=== PATIENT | male | born 1950 | race Two or more races ===

== ENCOUNTER 2019-08-03 15:23 | Emergency (ER) | payer MEDICARE, BC ==
[~2019-08-03] VITALS: Ht 167.6 cm; Wt 48.6 kg
[~2019-08-03 15:23] MED LIST: ALDACTONE25 MG PO; BRILINTA90 MG PO; COUMADIN5 MG PO; COUMADIN7.5 MG PO; LANOXIN125 MCG PO; LASIX40 MG PO; LISINOPRIL5 MG PO
[2019-08-03 15:32] VITALS: Ht 167.6 cm; Wt 48.6 kg
[2019-08-03 16:15] LABS: BASOPHILS 0.4 % (0-2); EOSINOPHILS 2.6 % (0-7); HEMATOCRIT 32.5 % (42.0-54.0); HEMOGLOBIN 10.3 g/dL (13.5-17.5); IMMATURE GRANULOCYTES 0.2 % (0-5); LYMPHOCYTES 12.9 % (15-50); MCH 31.1 pg (26.0-34.0); MCHC 31.7 g/dL (31.0-37.0); MCV 98.2 fL (80.0-100.0); MEAN PLATELET VOLUME 10.7 fL (7.4-10.4); MONOCYTES 14.8 % (2-11); NEUTROPHILS 69.1 % (40-80); RBC 3.31 10x6/uL (4.20-6.10); RDW 17.7 % (11.5-14.5); WBC 5.4 10x3/uL (4.8-10.8)
[2019-08-03 16:20] LABS: PLATELET COUNT 130 10x3/uL (130-400)
[2019-08-03 16:34] LABS: INR 2.47 (0.85-1.17)
[2019-08-03 16:35] LABS: APTT 40.8 SECONDS (22.8-39.4)
[2019-08-03 16:38] LABS: CALC OSMOLALITY 276 mosm/kg (275-300); CALCIUM 8.9 mg/dL (8.5-10.1); CARBON DIOXIDE 32.5 mmol/L (21.0-32.0); CHLORIDE - SERUM 101 mmol/L (98-107); CREATININE - SERUM 0.8 mg/dL (0.6-1.3); GLUCOSE 83 mg/dL (74-106); POTASSIUM - SERUM 3.7 mmol/L (3.5-5.1); SODIUM 137 mmol/L (136-145); UREA NITROGEN 23 mg/dL (7-18); eGFR NON AFRICAN AMERICAN > 90 mL/min (90-120)
[2019-08-03 16:54] LABS: ALBUMIN 3.3 g/dL (3.4-5.0); ALKALINE PHOSPHATASE 89 U/L (46-116); ALT (SGPT) 26 U/L (10-68); BILIRUBIN - TOTAL 2.41 mg/dL (0.2-1.3); CKMB 0.3 U/L (0.0-3.6); CREATINE KINASE 78 UL (21-232); PRO BNP 4071 pg/mL (0-125); PROTEIN - SERUM 7.6 g/dL (6.4-8.2); TROPONIN-I 0.041 ng/mL (0.000-0.060)
[2019-08-03 23:15] VITALS: BP 107/57
== END 2019-08-03 23:17 | disposition other institution (70) ==
LOC: D.ER 15:23
PROVIDERS: Family Medicine
DX: R06.02 Shortness of breath (principal); Z93.0 Tracheostomy status